=== PATIENT | female | born 1940 | race Caucasian/White ===

== ENCOUNTER → 2017-05-19 | Outpatient (CLI) | payer MEDICARE ==
[~2017-05-19] MED LIST: ALEN70TA43 PO; METH4TAB66 PO; TETR15DR9 OP
--- NOTE | 2017-05-19 17:58 | RADIOLOGY IMAGING REPORT ---
FACILITY: [facility] PATIENT NAME: Indira Wilkins : 1940 MR: [id number] V: [id number] EXAM DATE: ORDERING PHYSICIAN: GURJIT BRADY TECHNOLOGIST: Location: [facility] [place] Patient: Indira Wilkins : 1940 Visit/Account:[id number] Date of Sevice: 05/19/2017 ABDOMEN/PELVIS W/O CONTRAST Provided history: Spigelian hernia Additional pertinent history: none TECHNIQUE: Spiral scan was obtained from the lower chest through the symphysis without intravenous co ntrast. Source images were reformatted in the coronal and sagittal planes. Additional series performed today: none One of the following dose optimization techniques was utilized in the performance of this exam: Autom ated exposure control; adjustment of the mA and/or kV according to the patient's size; or use of an i terative reconstruction technique. Specific details can be referenced in the facility's radiology CT exam operational policy. COMPARISON STUDIES: none FINDINGS: Lower chest: Negative Liver/biliary: Negative Pancreas: Negative Spleen: Negative Adrenal glands: Negative Kidneys / ureters / bladder / genitourinary / retroperitoneum: Several punctate medullary calcificati ons noted mid and upper pole left kidney and clinically in the right kidney. No definable measurable stones and no hydronephrosis. No stones in the course of the ureters. Portions of the bladder obsc ured by artifact from the left hip. In the posterior right pelvis, between the body of the uterus and the greater sciatic notch there is a water attenuation cystic structure measuring 3.2 x 5.9 cm transverse diameter and 4.3 cm craniocaud al. There is no definable wall and no internal complexity. Assessment is somewhat hampered by exten sive spray artifact from the left hip. It is difficult to identify the right ovary. Bowel / peritoneum / mesenteries: Moderate stool retention in the colon without transmural inflammato ry disease. No free air. I see no herniation in the anterior abdominal wall Vessels: negative Lymph nodes: negative Body wall: negative Bones: Mild scoliosis convex left lumbar spine with moderately advanced degenerative change of the di scs. Left hip prosthesis in expected position. IMPRESSION: 1. As to the clinical question, I see no evidence of hernia in the anterior abdominal pelvic wall. 2. Ovoid shaped cyst posterior right pelvis of unclear origin. See above comments. Correlate with ultrasound if indicated. Report Dictated By: Bebo Acosta MD at 05/19/2017 5:47 PM Report E-Signed By: Bebo Acosta MD at 05/19/2017 5:54 PM WSN:[id number]
== END ==
LOC: CT 02:40
PROVIDERS: ATTEND Surgery
DX: N28.89 Other specified disorders of kidney and ureter (principal); N94.89 Other specified conditions associated with female genital organs and menstrual cycle
CPT/HCPCS: 74176

== ENCOUNTER → 2017-08-25 | Outpatient (CLI) | payer MEDICARE ==
--- NOTE | 2017-08-25 10:12 | RADIOLOGY IMAGING REPORT ---
[place] [facility] [place] NAME: Indira Wilkins : 1940 MR: [id number] V: [id number] EXAM DATE: ORDERING PHYSICIAN: DONTRELL GIL TECHNOLOGIST: Location: [facility] Patient: Indira Wilkins : 1940 Visit/Account:[id number] Date of Sevice: 08/25/2017 DEXA Scan Clinical history: Osteoporosis. Comparison: DEXA scan from 04/29/2015. LUMBAR SPINE: The bone mineral density (BMD) measured from L1-L4 correlates with a Z-score of 3.1 and a T-score of 0.7 which is NORMAL as defined by the World Health Organization. The corresponding risk of fracture in the lumbar spine is Not increased compared with a young adult reference population. This value prather s increased by 7.4 percent since the prior study. More than 5 percent change is considered significa nt. HIP: Femoral Neck: Bone mineral density (BMD) measured in the RIGHT femoral neck region correlates with a Z-score 0.7 an d a T-score of -1.7 which is osteopenia as defined by the World Health Organization. The correspondi ng risk of fracture in the hip is 3-4 times greater compared to a young adult reference population. B one mineral density (BMD) measured in the Femoral Neck region measures 0.801 g/cm2. Total Hip: Bone mineral density (BMD) measured in the RIGHT total hip region correlates with a Z-score 0.3 and a T-score of -2.0 which is osteopenia as defined by the World Health Organization. The corresponding risk of fracture in the hip is 4 times greater compared to a young adult reference population. This v alue has increased by 0.8 percent since the prior study. More than 5 percent change is considered si gnificant. IMPRESSION: 1. Lumbar spine: Normal. There has been a significant increase in the bone mineral density since previous exam. 2. Right femoral neck and total hip: Osteopenia. There has been No significant change in the bone m ineral density since the previous exam. The next DEXA scan of this patient should include the following sites: L1-L4 and the right hip. FRAX WHO Fracture Risk Assessment Tool link: <http://www.shef.ac.uk/FRAX/tool.jsp?locationValue=9> PLEASE NOTE: 1) The World Health Organization defines low BMD as follows: T-score Normal > -1 Osteopenia < -1 and > -2.5 Osteoporosis < -2.5 without fractures Established osteoporosis < -2.5 with fractures 2) In general, you may wish to consider: Diagnosis Treatment Follow-up DEXA Normal BMD Prevention 2-3 years Osteopenia Prevention/therapy 1-2 years Osteoporosis Therapy Yearly 3) Fracture risk estimated from the T-score is more accurate for vertebral fractures (often spontane ous) than for hip fractures. Report Dictated By: Grace Brar MD at 08/25/2017 9:45 AM Report E-Signed By: Grace Brar MD at 08/25/2017 9:48 AM WSN:[id number]
== END ==
LOC: RAD 02:22
PROVIDERS: ATTEND Internal Medicine
DX: Z13.820 Encounter for screening for osteoporosis (principal); M85.88 Other specified disorders of bone density and structure, other site
CPT/HCPCS: 77080

== ENCOUNTER → 2018-08-08 | Outpatient (CLI) | payer MEDICARE ==
--- NOTE | 2018-08-09 17:22 | RADIOLOGY IMAGING REPORT ---
FACILITY: [facility] - [place] PATIENT NAME: LIZANDRO GARCIA : [id number] MR: [id number] V: [id number] EXAM DATE: [id number] ORDERING PHYSICIAN: DONTRELL GIL TECHNOLOGIST: Dorina Nicole PROCEDURE:BILATERAL DIAGNOSTIC DIGITAL MAMMOGRAM WITH CAD ASSISTED INTERPRETATION & 3D TOMOSYNTHESIS REASON FOR STUDY: Palpable lump Right breast FAMILY HISTORY OF BREAST CANCER: None COMPARISON STUDIES: None MAMMOGRAM VIEWS OBTAINED: Bilateral 2D & 3D CC & MLO BREAST DENSITY: The breasts are heterogeneously dense which may obscure small masses. MAMMOGRAM FINDINGS: There is no suspicious mass, calcification or architectural distortion. ULTRASOUND AREA SCANNED: Right breast outer lower quadrant ULTRASOUND FINDINGS: There is a benign lymph node outer lower quadrant of the Right breast. DIAGNOSTIC CATEGORY 2--BENIGN FINDING. RECOMMENDATIONS: ROUTINE MAMMOGRAM AND CLINICAL EVALUATION. ASSESSMENT: BIRADS 2: Benign finding. Dictated by: Rei Sharma M.D. on 08/08/2018 at 14:28 Transcribed by: ANNABEL on 08/09/2018 at 6:46 Approved by: Rei Sharma M.D. on 08/09/2018 at 17:21 [facility]
--- NOTE | 2018-08-09 17:27 | RADIOLOGY IMAGING REPORT ---
FACILITY: [facility] - [place] PATIENT NAME: LIZANDRO GARCIA : [id number] MR: [id number] V: [id number] EXAM DATE: ORDERING PHYSICIAN: DONTRELL GIL TECHNOLOGIST: Keya Briones RDMS(ABD,OBGYN,BR),RVT REASON FOR STUDY: Palpable lump Right breast FAMILY HISTORY OF BREAST CANCER: None COMPARISON STUDIES: None MAMMOGRAM VIEWS OBTAINED: Bilateral 2D & 3D CC & MLO BREAST DENSITY: The breasts are heterogeneously dense which may obscure small masses. MAMMOGRAM FINDINGS: There is no suspicious mass, calcification or architectural distortion. ULTRASOUND AREA SCANNED: Right breast outer lower quadrant ULTRASOUND FINDINGS: There is a benign lymph node outer lower quadrant of the Right breast. DIAGNOSTIC CATEGORY 2--BENIGN FINDING. RECOMMENDATIONS: ROUTINE MAMMOGRAM AND CLINICAL EVALUATION. ASSESSMENT: BIRADS 2: Benign finding. Dictated by: Rei Sharma M.D. on 08/08/2018 at 14:28 Approved by: Rei Sharma M.D. on 08/09/2018 at 17:26 [facility]
== END ==
LOC: MAMO 07-16 00:24
PROVIDERS: ATTEND Internal Medicine
DX: N63.10 Unspecified lump in the right breast, unspecified quadrant (principal)
CPT/HCPCS: 77062; 77066